=== PATIENT | male | born 1930 | race Caucasian/White ===

== ENCOUNTER 2017-05-19 07:24 | Inpatient (IN) ==
[2017-05-19] MEDS ORDERED: NORMAL SALINE 500 ML IV ONE (07:34)
--- NOTE | 2017-05-19 07:53 | ERNOTE ---
<Roshni Lyman - Last Filed: 05/19/17 07:40> Dyspnea - General Presenting Symptoms: shortness of breath Time Seen by Provider: 05/19/17 07:24 Source: [facility] Exam Limitations: clinical condition - Immun/Allergies/Home Medications Immunizations: IMMUNIZATION HX Immunizations Up to Date Yes History of Influenza Vaccine Yes Hx Pneumococcal Vaccination No Allergies/Adverse Reactions: Allergies No Known Allergies Allergy (Verified 05/19/17 07:44) Home Medications: HOME MEDICATIONS Acetaminophen [Tylenol] 650 mg PO Q4H PRN 12/25/14 [Last Taken Unknown] Calcium Carbonate [Tums] 500 mg PO PRN PRN 12/25/14 [Last Taken Unknown] HYDROcodone/ACETAMINOPHEN [Lortab 5-325 mg Tablet] 1 each PO Q4H PRN 12/25/14 [ Last Taken Unknown] Ibuprofen [Motrin] 400 mg PO Q4H PRN 12/25/14 [Last Taken Unknown] Levothyroxine Sodium [Synthroid] 50 mcg PO DAILY 12/25/14 [Last Taken Unknown] Pantoprazole Sodium [Protonix] 40 mg PO DAILY 12/25/14 [Last Taken Unknown] Polyethylene Glycol 3350 [Miralax] 17 g PO DAILY 12/25/14 [Last Taken Unknown] Cefuroxime Axetil [Cefuroxime] 500 mg PO BID #20 tablet 12/28/14 [Last Taken Unknown] Furosemide [Lasix] 80 mg PO QAM #30 tab 12/28/14 [Last Taken Unknown] Phenytoin Sodium Extended [Dilantin] 200 mg PO TIDWM capsule 12/28/14 [Last Taken Unknown] Potassium Chloride [K-Dur] 20 meq PO BIDWM #60 tablet.sa 12/28/14 [Last Taken Unknown] levETIRAcetam [Keppra] 750 mg PO BID 30 Days tablet 12/28/14 [Last Taken Unknown] - History of Present Illness Narrative: Patient has a history of CVA, seizures, was started on levaquin four days ago for an URI. This morning he was found at the the [facility] in respiratory distress, low O2 sat , had a brief seizure. EMS started patient on a breathing treatment and reports glucose in the 200's, no history available from patient due to his current condition Date (Duration): 05/19/17 Time (Timing): 06:30 Review of Systems - Narrative Narrative: no details available - Review of Systems Respiratory: Present: shortness of breath - Patient's Past Medical History Patient History - Medical: Seizures, UTI'S Patient History - Cardiac/Respiratory: TIA Patient History - Cancer: Colon Patient History - Surgical Procedures: Total Hip Replacement, Other - Family History Mother Family History - Medical: No pertinent hx - Immunizations Immunizations Up to Date: Yes Hx Pneumococcal Vaccination: No History of Influenza Vaccine: Yes Physical Exam - Physical Exam General Appearance: Present: wd/wn, alert, severe distress, obese Head Exam: Present: normal inspection Eye Exam: Normal inspection: bilateral Respiratory: Present: respiratory distress - working hard on breathing, decreased breath sounds, expiration (prolonged) Gastrointestinal/Abdominal: Present: nontender, nondistended, soft Extremity Exam: Present: no edema Neurological Exam: Present: alert, other - unable to assess Skin Exam: Present: diaphoresis, pallor ED Progress - Vital Signs Patient's Vital Signs:: I have reviewed the patient's vital signs. - EKG EKG: NSR - sinus tachycardia EKG read: Interp. by nm - Transfer of Care Physician Sign Out: Roshni Lyman Receiving Physician: Jose David Pozo Pending Results: Labs, X-ray results Expected Disposition: Admit Departure Clinical Impression: Pneumonia, Elevated troponin Dyspnea Qualifiers: Dyspnea type: unspecified Qualified Code(s): R06.00 - Dyspnea, unspecified - Departure Disposition: Still a patient Condition: Fair <Jose David Pozo - Last Filed: 05/19/17 10:07> Dyspnea - Immun/Allergies/Home Medications Immunizations: IMMUNIZATION HX Immunizations Up to Date Yes History of Influenza Vaccine Yes Hx Pneumococcal Vaccination No ED Progress - Date and Time Seen: Date and Time: 05/19/17 10:05 unchanged - Results and Orders Patient's Lab Results:: I have reviewed the patient's lab results. - Vital Signs Patient's Vital Signs:: I have reviewed the patient's vital signs. Vital Signs: Vital Signs 05/19/17 05/19/17 05/19/17 07:32 07:53 08:15 Temperature 36.1 C L Pulse Rate 113 H 111 H 104 H Respiratory 30 H 19 17 Rate Blood Pressure 94/70 111/69 115/67 O2 Sat by Pulse 97 100 95 Oximetry 05/19/17 05/19/17 08:30 09:11 Temperature Pulse Rate 103 H 102 H Respiratory 17 16 Rate Blood Pressure 107/68 117/71 O2 Sat by Pulse 94 93 Oximetry - X-Ray X-Ray #1 X-Ray: chest - atelectasis vs pneumonnia - Progress/Reassessment Progress:: Unchanged Plan - Plan Plan: case discussed with dr cohen who accepts patient for admission, patient remains dnr
[2017-05-19 08:07] LABS: Hematocrit 39.4 % (42.0-52.0); Hemoglobin 12.6 gm/dL (13.5-18.0); Mean Corpuscular Hemoglobin 26.9 pg (27-31); Mean Platelet Volume 8.9 fl (6.0-9.5); Neutrophil # 12.6 K/mm3 (1.3-6.0); Platelet Count 459 K/mm3 (150-450); Red Blood Count 4.69 M/mm3 (4.7-6.0); Red Cell Distribution Width 14.2 % (11.5-14.0); White Blood Count 15.1 K/mm3 (4.0-10.5)
[2017-05-19 08:24] LABS: Albumin * 3.1 gm/dl (3.4-5.0); Anion Gap 20.3 mmol/L (6.8-13.8); Bilirubin, Total 0.3 mg/dL (0.0-1.1); Ca. Corrected For Albumin 9.8 mg/dL (8.4-10.2); Calcium * 9.4 mg/dL (7.9-10.9); Carbon Dioxide 22.4 mmol/L (24-32.6); Potassium 3.7 mmol/L (3.4-4.6); Total Protein 8.4 gm/dL (6.2-8.2)
[2017-05-19 08:26] LABS: Troponin I 2.187 ng/ml (0.00-0.10)
[2017-05-19] MEDS ORDERED: LORazepam 2 MG/ML DISP.SYRIN ONE (09:32)
[2017-05-19] MEDS ORDERED: PIPERACILLIN SODIUM/TAZOBACTAM 3.375 GM in DEXTROSE 5 % IN WATER 100 ML IV ONE ×2 (09:37)
[2017-05-19] MEDS ORDERED: LORazepam 2 MG/ML DISP.SYRIN IV ONE (09:37)
[2017-05-19] MEDS ORDERED: AMPICILLIN SODIUM/SULBACTAM NA 3 GM in NORMAL SALINE 100 ML IV SCH (10:30)
[2017-05-19] MEDS ORDERED: hydrOXYzine HCL 25 MG TABLET PO PRN (13:09)
[2017-05-19] MEDS ORDERED: HYDROcodone/ACETAMINOPHEN 1 EACH TABLET PO PRN (13:09)
[2017-05-19] MEDS ORDERED: ASPIRIN 325 MG TABLET.DR PO ONE (13:16)
[2017-05-19] MEDS ORDERED: CLOPIDOGREL BISULFATE 75 MG TABLET PO ONE (13:18)
[2017-05-19] MEDS: ENOXAPARIN SODIUM 60 MG/0.6 ML SYRG SC SCH (15:40)
[2017-05-19] MEDS: METOPROLOL TARTRATE 25 MG TABLET PO SCH ×2 (15:41→20:01)
[2017-05-19] MEDS: AMPICILLIN SODIUM/SULBACTAM NA 3 GM in NORMAL SALINE 100 ML IV SCH ×2 (15:42→22:42)
[2017-05-19] MEDS: POTASSIUM CHLORIDE 20 MEQ TABLET.SA PO SCH (17:10)
--- NOTE | 2017-05-19 17:47 | HP ---
Chief Complaint - Chief Complaint Date of Service: 05/19/17 Time of Service: 17:46 Chief Complaint: Shortness of breath, altered mental status History of Present Illness: Laly is an 86 yo male with PMH of CVA and epilepsy. He is a resident of [facility] where he became short of breath, had a witnessed seizure , and altered mental status. He was reportedly hypoxic. EMS was called and he was placed on oxygen and given a breathing treatment. He was transported to [facility] ER. He had increased work of breathing and was placed on bipap that helped improve his dyspnea. He had an ECG that showed no acute changes. Chest xray showed small pleural effusion. Bloodwork showed elevated WBC at 15k and a troponin of >2 with BNP of >9k. Patient was somnolent and oriented x 0. Discussed with family who report his baseline is a person who feeds himself, carries on a normal conversation, but has had a history of seizures in the past. It is unknown when his last seizure was, but they believe in the past year. Family reports that he does get stubborn at times and will refuse medications. They are unaware of any medications changes or any recent missed medications. Family agrees that the patient is DNR and they do not want any heroic measures implemented. They would like to minimize any unnecessary testing , including blood draws, but do agree to labs if needed. - Patient's Past Medical History Patient History - Medical: Anemia, Diabetes Type 2, GERD, Hypothyroidism, Seizures, UTI'S Patient History - Cardiac/Respiratory: Hypertension, Hyperlipidemia, TIA Patient History - Cancer: Colon Patient History - Surgical Procedures: Total Hip Replacement Patient History - Other: None - Family History Mother Family History - Medical: No pertinent hx - Social History Living Situations: custodial Abuse History: No History of abuse Psych History: No pertinent hx Smoking Status: Unknown if ever smoked Have you smoked in the past 12 months: No Do you dip or chew tobacco: No Alcohol Use: none Drug Use: none - Immunizations Immunizations Up to Date: Yes Hx Pneumococcal Vaccination: No History of Influenza Vaccine: Yes Review Of Systems (GEN) - Review of Systems Additional Comments: Patient is currently likely post ictal and unable to give ROS. Allergies/Adverse Reactions: Allergies Allergy/AdvReac Type Severity Reaction Status Date / Time No Known Allergies Allergy Verified 05/19/17 12:18 Home Medications: HOME MEDICATIONS Calcium Carbonate [Tums] 500 mg PO Q4H PRN 12/25/14 [Last Taken Unknown] HYDROcodone/ACETAMINOPHEN [Lortab 5-325 mg Tablet] 1 each PO BID PRN 12/25/14 [ Last Taken Unknown] Levothyroxine Sodium [Synthroid] 75 mcg PO DAILY 12/25/14 [Last Taken Unknown] Pantoprazole Sodium [Protonix] 40 mg PO DAILY 12/25/14 [Last Taken Unknown] Furosemide [Lasix] 80 mg PO QAM #30 tab 12/28/14 [Last Taken Unknown] Potassium Chloride [K-Dur] 20 meq PO BIDWM #60 tablet.sa 12/28/14 [Last Taken Unknown] Citalopram Hydrobromide [Citalopram HBr] 20 mg PO DAILY 05/19/17 [Last Taken Unknown] Doxepin HCl 1 ml PO TID 05/19/17 [Last Taken Unknown] Hydroxyzine HCl 50 mg PO QID PRN 05/19/17 [Last Taken Unknown] Levofloxacin [Levaquin] 500 mg PO DAILY 05/19/17 [Last Taken Unknown] Phenytoin Sodium Extended [Dilantin] 200 mg PO HS 05/19/17 [Last Taken Unknown] Warfarin Sodium [Jantoven] 2.5 mg PO 05/19/17 [Last Taken Unknown] Warfarin Sodium [Jantoven] 5 mg PO 3XW 05/19/17 [Last Taken Unknown] diphenhydrAMINE HCL [Benadryl] 50 mg PO TID PRN 05/19/17 [Last Taken Unknown] levETIRAcetam [Keppra] 1,000 mg PO BID 05/19/17 [Last Taken Unknown] Exam - Exam Vital Signs: Vital Signs - Last Taken Temp 36.4 C L 05/19/17 14:29 Pulse 101 H 05/19/17 15:41 Resp 16 05/19/17 14:29 BP 98/65 05/19/17 15:41 Pulse Ox 96 05/19/17 14:29 Constitutional: Present: Somnolent - patient does open eyes to verbal commands and makes eye contact. He does answer yes and no questions, although unsure how well he understands. He does not recognize his son at the bedside, Other - Patient currently off bipap, on room air without respiratory distress, Obese Eye Exam: bilateral eye: normal inspection Respiratory: Present: lungs clear, normal breath sounds Cardiovascular/Chest: Present: regular rate, rhythm, no edema, no murmur Abdomen: Present: Normal bowel sounds, soft, nontender, nondistended Extremity: Present: no pedal edema Skin Exam: Present: normal color, warm/dry, no cyanosis Neurologic: Present: no motor/sensory deficits - no obvious abnormalities Diagnostic Studies: Abnormal Lab Results 05/19/17 Range/Units 11:20 Lactic Acid, Venous 2.6 H* (0.4-1.9) mmol/L Laboratory Results WBC 15.1 K/mm3 (4.0-10.5) H 05/19/17 08:02 RBC 4.69 M/mm3 (4.7-6.0) L 05/19/17 08:02 Hgb 12.6 gm/dL (13.5-18.0) L 05/19/17 08:02 Hct 39.4 % (42.0-52.0) L 05/19/17 08:02 MCV 84.0 fl (78-100) 05/19/17 08:02 MCH 26.9 pg (27-31) L 05/19/17 08:02 MCHC 32.0 g/dl (32-36) 05/19/17 08:02 RDW 14.2 % (11.5-14.0) H 05/19/17 08:02 Plt Count 459 K/mm3 (150-450) H 05/19/17 08:02 MPV 8.9 fl (6.0-9.5) 05/19/17 08:02 Immature Gran % (Auto) 2.20 % (0.001-0.429) H 05/19/17 08:02 Immature Gran # (Auto) 0.33 K/mm3 (0.000-0.0310) H 05/19/17 08:02 Neutrophils % 83.0 % (42-75.0) H 05/19/17 08:02 Lymphocytes % 9.1 % (20-51) L 05/19/17 08:02 Monocytes % 4.8 % (0.0-9) 05/19/17 08:02 Eosinophils % 0.3 % (0.0-3.0) 05/19/17 08:02 Basophils % 0.6 % (0.0-1.0) 05/19/17 08:02 Nucleated RBC % 0.0 k/mm3 (0-1) 05/19/17 08:02 Neutrophils # 12.6 K/mm3 (1.3-6.0) H 05/19/17 08:02 Lymphocytes # 1.37 k/mm3 (1.5-3.5) L 05/19/17 08:02 Monocytes # 0.7 k/mm3 (0.0-1.0) 05/19/17 08:02 Eosinophils # 0.0 k/mm3 (0.0-0.7) 05/19/17 08:02 Absolute Basophils 0.1 k/mm3 (0.0-0.1) 05/19/17 08:02 pCO2 37.9 mmHg (35.0-48.0) 05/19/17 07:33 pO2 69.6 mmHg (83.0-108.0) L 05/19/17 07:33 HCO3 21.5 mmol/L (21.0-28.0) 05/19/17 07:33 Total CO2 22.7 mmol/L (19.0-24.0) 05/19/17 07:33 Base Excess -3.3 mmol/L (-2.0-3.0) L 05/19/17 07:33 ABG pH 7.37 (7.35-7.45) 05/19/17 07:33 ABG O2 Sat (Measured) 93.7 % (94.0-98.0) L 05/19/17 07:33 Sodium 142 mmol/L (132-142) 05/19/17 08:02 Plasma Sodium 144 mmol/L (130-142) H 05/19/17 08:02 Potassium 3.7 mmol/L (3.4-4.6) 05/19/17 08:02 Chloride 103 mmol/L (97-106) 05/19/17 08:02 Carbon Dioxide 22.4 mmol/L (24-32.6) L 05/19/17 08:02 Anion Gap 20.3 mmol/L (6.8-13.8) H 05/19/17 08:02 BUN 29 mg/dL (6-23) H 05/19/17 08:02 Creatinine 1.61 mg/dL (0.4-1.4) H D 05/19/17 08:02 Est GFR (Non-Af Amer) 43 mL/min (60-130) L D 05/19/17 08:02 BUN/Creatinine Ratio 18.0 (9.0-21.6) 05/19/17 08:02 Random Glucose 195 mg/dL (70-110) H 05/19/17 08:02 Lactic Acid, Venous 2.6 mmol/L (0.4-1.9) H* 05/19/17 11:20 Calcium 9.4 mg/dL (7.9-10.9) 05/19/17 08:02 Calcium Adj for Albumin 9.8 mg/dL (8.4-10.2) 05/19/17 08:02 Total Bilirubin 0.3 mg/dL (0.0-1.1) 05/19/17 08:02 AST 37 U/L (0-48) 05/19/17 08:02 ALT 30 U/L (19-67) 05/19/17 08:02 Alkaline Phosphatase 160 U/L (50-170) 05/19/17 08:02 Troponin I 2.187 ng/ml (0.00-0.10) H* 05/19/17 08:02 B-Natriuretic Peptide 9219 pg/mL (5-650) H 05/19/17 08:02 Total Protein 8.4 gm/dL (6.2-8.2) H 05/19/17 08:02 Albumin 3.1 gm/dl (3.4-5.0) L 05/19/17 08:02 Assessment/Plan - Narrative Narrative: Laly is an 86 yo male with: 1) NSTEMI - Patient with severely elevated troponin of >2. This may be cardiac strain from seizure or sepsis, but this is extremely high and therefore I believe NSTEMI. Will start metoprolol tartrate 25mg BID, Crestor 20mg HS. Lovenox 1mg/kg BID, Plavix 300mg loading dose then 75mg daily, Daily aspirin 325mg. No oxygen needed at this time. No chest pain so no nitro or morphine indicated. 2) Elevated WBC and lactic acid - Possible sepsis from pneumonia. Chest xray shows pleural effusion, but pneumonia would be hard to exclude. ER started patient on unasyn, will continue although I suspect WBC and lactic acid may be elevated from stress of seizure/NSTEMI. 3) Seizure - Patient with history of epilepsy with witnessed seizure. On keppra and dilantin. Will check levels. Will give ativan prn any further seizures. Seizures may be contributing to elevated WBC, lactic acid, troponin. 4) Acute respiratory failure - This is now resolved. Patient initially hypoxic and in severe distress. This was resolved with BIPAP for a short period of time. This may have been related to the seizure or NSTEMI, but it is not resolved and patient is comfortably on room air. 5) Social - Expect >2midnights to medically treat NSTEMI and trend labs to get a better understanding of what initially caused this episode. Will continue treatment for possible pneumonia/sepsis, NSTEMI, and seizure for now until some of these differentials can be ruled out. - Assessment/Plan (1) NSTEMI (non-ST elevation myocardial infarction) Problem: Acute (2) Seizure Problem: Acute (3) Seizure Problem: Acute (4) Leukocytosis Problem: Acute (5) Pleural effusion Problem: Acute
[2017-05-19] MEDS ORDERED: LORazepam 2 MG/ML DISP.SYRIN IV PRN (18:56)
[2017-05-19] MEDS: levETIRAcetam 500 MG TABLET PO SCH (20:02)
[2017-05-19] MEDS ORDERED: PHENYTOIN SODIUM EXTENDED 100 MG CAPSULE PO SCH (21:00)
[2017-05-19] MEDS ORDERED: ROSUVASTATIN CALCIUM 20 MG TABLET PO SCH (21:00)
--- NOTE | 2017-05-20 01:41 | PN ---
Progess Note - Interim Date: 05/20/17 Time: 01:32 Narrative: 05/20/17 01:32 Hypotensive: Discussed with POA daughter who is also a nurse, stated she want no further interventions and should allow pt to rest. The plan is for hospice and comfort care. But she will decide with the rest of the family by morning. At this time to keep Bipap off, IVF at KVO rate.Nothing aggressive, pt had No more seizure activity since 05/19/2017, the last documented occurrence which occur while family was here visiting.
[2017-05-20] MEDS: ENOXAPARIN SODIUM 60 MG/0.6 ML SYRG SC SCH ×2 (01:46→13:08)
[2017-05-20] MEDS: AMPICILLIN SODIUM/SULBACTAM NA 3 GM in NORMAL SALINE 100 ML IV SCH ×2 (04:03→10:01)
[2017-05-20 05:05] LABS: Hematocrit 33.9 % (42.0-52.0); Hemoglobin 10.7 gm/dL (13.5-18.0); Mean Cell Volume 85.4 fl (78-100); Mean Corpuscular Hgb Conc 31.6 g/dl (32-36); Mean Platelet Volume 9.1 fl (6.0-9.5); Neutrophil # 9.5 K/mm3 (1.3-6.0); Neutrophil % 73.1 % (42-75.0); Platelet Count 333 K/mm3 (150-450); Red Blood Count 3.97 M/mm3 (4.7-6.0); Red Cell Distribution Width 14.3 % (11.5-14.0)
[2017-05-20 05:24] LABS: Albumin * 2.5 gm/dl (3.4-5.0); Anion Gap 12.7 mmol/L (6.8-13.8); BUN/Creatinine Ratio 17.8 (9.0-21.6); Bilirubin, Total 0.2 mg/dL (0.0-1.1); Ca. Corrected For Albumin 9.8 mg/dL (8.4-10.2); Calcium * 8.9 mg/dL (7.9-10.9); Carbon Dioxide 26.2 mmol/L (24-32.6); Potassium 2.9 mmol/L (3.4-4.6); Total Protein 6.8 gm/dL (6.2-8.2)
[2017-05-20 05:25] LABS: Troponin I 1.479 ng/ml (0.00-0.10)
--- NOTE | 2017-05-20 06:33 | PN ---
Subjective - Date and Time Seen Date: 05/20/17 Time: 06:30 Subjective Narrative: Patient seen today Alert and follows commands, pt stated " feeling terrible but is feeling ok" son at the bedside and family insisting they need no further intervention. Objective Objective Narrative: Trop: 1.479, refused EKG - Review of Systems Generalized/Overall Review: Reports: No Symptoms Reported EENTM: Reports: No Symptoms Reported Respiratory: Reports: No Symptoms Reported Cardiac: Reports: No Symptoms Reported Abdominal: Reports: No Symptoms Reported Genitourinary Symptoms: Reports: No Symptoms Reported Musculoskeletal Complaints: Reports: No Symptoms Reported Neurological: Reports: No Symptoms Reported Skin: Reports: No Symptoms Reported Endocrine: Reports: No Symptoms Reported - Vitals Vitals: Last Vital Signs Temp 37.0 C 05/20/17 02:52 Pulse 80 05/20/17 02:52 Resp 22 H 05/20/17 02:52 BP 93/53 05/20/17 02:52 Pulse Ox 96 05/20/17 02:52 - Abnormal Lab Findings Abnormal Lab Findings: Abnormal Lab Results 05/19/17 05/20/17 05/20/17 Range/Units 11:20 05:03 05:03 WBC 13.0 H (4.0-10.5) K/mm3 RBC 3.97 L (4.7-6.0) M/mm3 Hgb 10.7 L (13.5-18.0) gm/dL Hct 33.9 L (42.0-52.0) % MCHC 31.6 L (32-36) g/dl RDW 14.3 H (11.5-14.0) % Immature Gran % (Auto) 1.60 H (0.001-0.429) % Immature Gran # (Auto) 0.21 H (0.000-0.0310) K/mm3 Lymphocytes % 12.9 L (20-51) % Monocytes % 9.7 H (0.0-9) % Neutrophils # 9.5 H (1.3-6.0) K/mm3 Monocytes # 1.3 H (0.0-1.0) k/mm3 Sodium 145 H (132-142) mmol/L Plasma Sodium 146 H (130-142) mmol/L Potassium 2.9 L D (3.4-4.6) mmol/L Chloride 109 H (97-106) mmol/L BUN 28 H (6-23) mg/dL Creatinine 1.57 H (0.4-1.4) mg/dL Est GFR (Non-Af Amer) 45 L (60-130) mL/min Random Glucose 144 H (70-110) mg/dL Lactic Acid, Venous 2.6 H* (0.4-1.9) mmol/L Troponin I 1.479 H* (0.00-0.10) ng/ml Albumin 2.5 L (3.4-5.0) gm/dl - EKG/Xray Findings EKG: rhythm - Exam Constitutional: Present: Alert, Oriented x3, Cooperative, No distress ENT Exam: Present: hard of hearing Neck: Present: non-tender, full range of motion Breasts: Present: Exam deferred Respiratory: Present: chest non-tender, lungs clear, normal breath sounds, no respiratory distress Cardiovascular/Chest: Present: normal peripheral pulses, regular rate, rhythm, no chest tenderness, no edema Abdomen: Present: Normal bowel sounds, soft, nontender, nondistended Extremity: Present: normal range of motion, non-tender, normal inspection, no calf tenderness Skin Exam: Present: normal color, warm/dry, no cyanosis Neurologic: Present: alert, normal mood/affect Appearance: Present: appropriate appearance Eye contact: Present: cooperative Thoughts: Present: no apparent hallucination Assessment/Plan Plan Narrative: Elevated troponin On adm Troponin 2.18--->1.47 Family refuseding further interventions Will continue with crestor, BB, plavix, lovenox and aspirin NSTEMI - Patient with severely elevated troponin of >2. This morning troponin trending down, pt denies chest pain and family request no further interventions. Will continue with crestor, BB, plavix, lovenox and aspirin Seizure - Patient with history of epilepsy with witnessed seizure. On keppra and dilantin. Dilantin level sub-therapeutic and keppra level still pending Will give ativan prn any further seizures. No more seizures during the night Seizures may be contributing to elevated WBC, lactic acid, troponin. Acute respiratory failure - This is now resolved. Patient initially hypoxic and in severe distress. This was resolved with BIPAP for a short period of time. This may have been related to the seizure or NSTEMI, but it is not resolved and patient is comfortably on room air. Code status: DNR, daughter (POA) considering comfort care and hospice will decide later today. VTE ppx: Therapeutic Lovenox Time 40 minutes and case discussed with Dr cohen. - Problems/Diagnosis (1) Elevated troponin Problem: Acute (2) Leukocytosis Problem: Acute (3) NSTEMI (non-ST elevation myocardial infarction) Problem: Acute (4) Seizure Problem: Acute (5) Hypokalemia Problem: Acute (6) Pleural effusion Problem: Acute (7) Stage II pressure ulcer Problem: Acute
[2017-05-20] MEDS ORDERED: BENZOCAINE/MENTHOL 16 EACH BOX MM PRN (06:50)
[2017-05-20] MEDS ORDERED: LEVOTHYROXINE SODIUM 75 MCG TABLET PO SCH (07:00)
[2017-05-20] MEDS ORDERED: PANTOPRAZOLE SODIUM 40 MG TABLET.EC PO SCH (07:00)
[2017-05-20] MEDS ORDERED: METOPROLOL TARTRATE 25 MG TABLET PO SCH (08:32)
[2017-05-20] MEDS ORDERED: POTASSIUM CHLORIDE IN WATER 100 ML IV SCH (08:33)
[2017-05-20] MEDS ORDERED: POTASSIUM CHLORIDE 40 MEQ in NORMAL SALINE 1,000 ML IV ONE (08:45)
[2017-05-20] MEDS ORDERED: ASPIRIN 325 MG TABLET.DR PO SCH (09:00)
[2017-05-20] MEDS ORDERED: CLOPIDOGREL BISULFATE 75 MG TABLET PO SCH (09:00)
[2017-05-20] MEDS ORDERED: CITALOPRAM HYDROBROMIDE 20 MG TABLET PO SCH (09:00)
[2017-05-20] MEDS: levETIRAcetam 500 MG TABLET PO SCH (09:59)
[2017-05-20] MEDS: POTASSIUM CHLORIDE 20 MEQ TABLET.SA PO SCH (10:00)
[2017-05-20 13:45] LABS: Anion Gap 14.7 mmol/L (6.8-13.8); BUN/Creatinine Ratio 17.4 (9.0-21.6); Calcium * 8.9 mg/dL (7.9-10.9); Carbon Dioxide 22.7 mmol/L (24-32.6); Estimated Creat Clear 40.9; Potassium 3.4 mmol/L (3.4-4.6)
[2017-05-20 13:46] LABS: Prothrombin Time (Patient) 24.1 Seconds (9.0-11.0)
[2017-05-20 13:56] LABS: INR 2.39 INR (0.90-1.10)
--- NOTE | 2017-05-20 14:44 | DS ---
(1) Seizure Problem: Acute (2) NSTEMI (non-ST elevation myocardial infarction) Problem: Acute (3) Seizure Problem: Acute (4) Leukocytosis Problem: Acute (5) Pleural effusion Problem: Acute (6) Acute respiratory failure with hypoxia Problem: Acute Description of Stay: Laly is an 86 yo male who resides at [facility]. He was brought to [facility] ER for shortness of breath, hypoxia, and altered mental status. He was placed on Bipap in the ER to improve oxygenation. Oygen did improve and over time he was able to be weaned off oxygen to room air. Chest xray showed pleural effusion and he had an elevated WBC and troponin. The ER did discuss with the patient's family concern over the elevated tropoinin but due to his age, medical conditions, and patient's wishes they did not want to pursue in cardiac procedures if he did indeed have a myocardial infarction. Family reports they had witnessed seizure activity and that he does have a history of seizures. He takes both dilantin and keppra to prevent seizures. He was continued on seizure medications and medication levels were checked. His dilantin level was low. Initially there was concern about possible pneumonia due to cough, shortness of breath, hypoxia, pleural effusion, and elevated WBC. He was started on antibiotics. However this was ruled out and WBC likely elevated due to seizure. Troponin was also elevated but trended down. There were no ECG changes. He was initially started on medication for possible IA including lovenox, statin, beta blockers. He never reported chest pain and I wonder if the troponin was elevated because of seizure. I discussed medication changes with family and patient but everyone agreed just to increase the dilantin level and it is suspected that all findings were likely related to the seizure. Will recheck dilantin levels in a week. Patient returned to his normal baseline and was discharged back to [facility]. Procedures Performed: none Discharge Location: [facility] Discharge Location: [facility] Disposition: Intermediate Care Facility ICF Condition: Fair Discharge Activity: Activity as tolerated Discharge Diet: Low salt Problem Oriented Discharge Instructions to Patient/Family: Epilepsy Additional Patient Instructions (free text): Check Dilantin level in 10 days. Prescriptions (Any new or edited meds): Phenytoin Sodium Extended [Dilantin] 200 mg PO HS #30 capsule Phenytoin Sodium Extended [Dilantin] 30 mg PO HS #30 capsule Complete Home Medications List: Complete Home Medication List: Calcium Carbonate [Tums] 500 mg PO Q4H PRN 12/25/14 HYDROcodone/ACETAMINOPHEN [Lortab 5-325 mg Tablet] 1 each PO BID PRN 12/25/14 Levothyroxine Sodium [Synthroid] 75 mcg PO DAILY 12/25/14 Pantoprazole Sodium [Protonix] 40 mg PO DAILY 12/25/14 Furosemide [Lasix] 80 mg PO QAM #30 tab 12/28/14 Potassium Chloride [K-Dur] 20 meq PO BIDWM #60 tablet.sa 12/28/14 Citalopram Hydrobromide [Citalopram HBr] 20 mg PO DAILY 05/19/17 Doxepin HCl 1 ml PO TID 05/19/17 Hydroxyzine HCl 50 mg PO QID PRN 05/19/17 Levofloxacin [Levaquin] 500 mg PO DAILY 05/19/17 Warfarin Sodium [Jantoven] 2.5 mg PO 05/19/17 Warfarin Sodium [Jantoven] 5 mg PO 3XW 05/19/17 diphenhydrAMINE HCL [Benadryl] 50 mg PO TID PRN 05/19/17 levETIRAcetam [Keppra] 1,000 mg PO BID 05/19/17 Phenytoin Sodium Extended [Dilantin] 30 mg PO HS #30 capsule 05/20/17 Phenytoin Sodium Extended [Dilantin] 200 mg PO HS #30 capsule 05/20/17 Amb Orders for Discharge: Phenytoin Time Frame: 10 Days, Facility: [facility], Location: Laboratory
[2017-05-20 17:38] VITALS: BP 132/62
== END 2017-05-20 15:45 | DRG 280 ==
LOC: ER 07:24 → OBSVTOIN 10:22 → MS 10:22
PROVIDERS: ADMIT Family Medicine; ATTEND Family Medicine
DX: I21.4 Non-ST elevation (NSTEMI) myocardial infarction; E03.9 Hypothyroidism, unspecified; E87.6 Hypokalemia; L89.92 Pressure ulcer of unspecified site, stage 2; I10 Essential (primary) hypertension; D72.829 Elevated white blood cell count, unspecified; G40.909 Epilepsy, unspecified, not intractable, without status epilepticus; Z85.038 Personal history of other malignant neoplasm of large intestine; E78.5 Hyperlipidemia, unspecified; J96.01 Acute respiratory failure with hypoxia; E11.9 Type 2 diabetes mellitus without complications; Z79.01 Long term (current) use of anticoagulants
CPT/HCPCS: 36415; 36600; 71010; 71045; 80048; 80053; 80177; 80185; 82803; 83519; 83605; 83880; 84484; 85025; 85610; 87040; 87081; 93005; 94660; 94760; 96365; 96375; 99285